=== PATIENT | male | born 1985 | race Caucasian/White ===

== ENCOUNTER 2019-07-30 12:23 | Emergency (ER) | payer MEDICAID ==
[~2019-07-30] VITALS: Ht 175.3 cm; Wt 114.3 kg
[2019-07-30 12:45] VITALS: Ht 175.3 cm; Wt 114.3 kg
[2019-07-30 14:57] VITALS: BP 111/57
== END 2019-07-30 14:57 | disposition home or self-care (01) ==
LOC: ED 12:23
DX: M54.6 Pain in thoracic spine (principal); M25.512 Pain in left shoulder; V49.9XXA Car occupant (driver) (passenger) injured in unspecified traffic accident, initial encounter; Y93.I9 Activity, other involving external motion; Y92.413 State road as the place of occurrence of the external cause; Y99.8 Other external cause status